=== PATIENT | female | born 1965 ===

== ENCOUNTER 2022-10-02 10:39 | Inpatient (IN) | payer MEDICAID, OTHER ==
[2022-10-02] MEDS ORDERED: MAG HYDROX/AL HYDROX/SIMETH 30 ML CUP PO PRN (11:01)
[2022-10-02] MEDS ORDERED: ACETAMINOPHEN TAB 325 MG TAB PO PRN (11:01)
[2022-10-02] MEDS ORDERED: MAGNESIUM HYDROXIDE 2,400 MG/10 ML CUP PO PRN (11:01)
[2022-10-02] MEDS ORDERED: HALOPERIDOL LACTATE 5 MG/ML 1 ML VIAL IM PRN (11:12)
[2022-10-02] MEDS ORDERED: LORazepam 2 MG/ML INJ IM PRN (11:12)
[2022-10-02] MEDS: haloperidoL 5 MG TAB PO PRN (14:19)
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
[2022-10-02] MEDS: OLANZapine 5 MG TAB PO SCH (20:41)
--- NOTE | 2022-10-02 23:48 | P.CONS ---
History of Present Illness - Reason for Consult Consult date: 10/02/22 - History of Present Illness Patient is a 57-year-old female with a PMH of depression and anxiety who was transferred from [facility] where she had presented presented to the emergency room with complaints of depression and suicidal ideation. The patient was admitted to the mental health unit where she was seen and evaluated. The patient states that she has recently been worried about her children and has just been feeling down about her life. Patient states that she received a divorce from her ex- 4 years ago after a long marriage. 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 She denies any physical complaints at the time of interview however. The patient denies tobacco, alcohol, or substance use. She denied experiencing chest discomfort, shortness of breath, fever, chills, cough, nausea, vomiting, abdominal pain, diarrhea. Review of systems: Pertinent positives and negatives as discussed in HPI, a complete review of systems was performed and all other systems are negative. Physical examination: General: non toxic, no distress, appears at stated age, obese Derm: no unusual rashes/lesions, no unusual ecchymoses, warm, dry Head: atraumatic, normocephalic, symmetric Eyes: EOMI, no lid lag, anicteric sclera ENT: Nose and ears atraumatic, no thrush, no pharyngeal erythema Neck: trachea midline, supple Mouth: no lip lesion, mucus membranes moist Cardiovascular: S1S2 reg, no murmur, no edema Lungs: CTA bilateral, no rhonchi, no rales , no accessory muscle use Abdominal: soft, nontender to palpation, no guarding Ext: no gross muscle atrophy, no contractures, Neuro: No gross focal neuro deficits noted Psych: Alert, oriented, appropriate affect Assessment: Elevated blood pressure Depression and suicidal ideation Imaging: None performed Plan: Monitor blood pressure for now and consider antihypertensives if persistently elevated Defer management of depression and suicidal ideation a primary psychiatry service Thank you for allowing us to participate in the care of this patient. We will follow peripherally. Do not hesitate to contact us with questions. Someone can be reached from the [facility] hospitalist group at all hours of the day at [phone]. Past Medical History Smoking Status: Never smoker - Past Family History Mother Family Medical History: Cancer Medications and Allergies Home Medications Medication Instructions Recorded Confirmed Type ALPRAZolam [Xanax] 0.5 mg PO DAILY PRN 10/02/22 10/02/22 History Dextroamphetamine/Amphetamine 20 mg PO BID 10/02/22 10/02/22 History [Adderall] FLUoxetine HCL 40 mg PO DAILY 10/02/22 10/02/22 History Allergies Allergy/AdvReac Type Severity Reaction Status Date / Time aspirin Allergy Unknown Verified 10/02/22 16:26 Physical Exam Vitals: Vital Signs Temp Pulse Resp BP Pulse Ox 10/02/22 14:26 98.4 F 88 16 143/84 99 Intake and Output 10/02/22 10/02/22 10/03/22 14:59 22:59 06:59 Other: Weight 79 kg
[2022-10-03] MEDS: MULTIVITAMINS, THERA 1 EACH TAB PO SCH (08:40)
[2022-10-03] MEDS: THIAMINE 100 MG TAB PO SCH (08:41)
[2022-10-03] MEDS ORDERED: FLUoxetine HCL 20 MG CAP PO SCH (09:00)
[2022-10-03] MEDS: FLUoxetine HCL 20 MG CAP PO SCH (16:21)
[2022-10-03] MEDS: OLANZapine 5 MG TAB PO SCH (20:32)
[2022-10-03] MEDS: LORazepam 1 MG TAB PO PRN (20:32)
[2022-10-04 06:44] VITALS: RESP 16
[2022-10-04] MEDS: MULTIVITAMINS, THERA 1 EACH TAB PO SCH (08:38)
[2022-10-04] MEDS: FLUoxetine HCL 20 MG CAP PO SCH (08:38)
[2022-10-04] MEDS: THIAMINE 100 MG TAB PO SCH (08:38)
[2022-10-04] MEDS: LORazepam 1 MG TAB PO PRN ×2 (10:58→23:20)
[2022-10-04] MEDS: OLANZapine 5 MG TAB PO SCH (20:28)
[2022-10-04] MEDS ORDERED: traZODone HCL 50 MG TAB PO SCH (21:00)
--- NOTE | 2022-10-04 21:01 | P.PN ---
Progress Note - Text Progress Note Date: 10/03/22 Interval History: Patient was seen resting in her bed and was directable and agreeable to speak with commercial insurance underwriter in the office. She reports her mood is "normal". she reports she feels good, "better than I have in a while". She reports she felt like she wanted to prior to coming into the hospital, nothing was making me happy, was just sad all the time. She was sober for 3 years, and relapsed on Thursday prior to admission. She reports chronic anxiety, denies panic attacks. At this time patient denies any suicidal or homicidal ideation, intent or plan. Patient denies any auditory, visual hallucinations, and denies any paranoia or delusions. Patient denies any side effects from the medications and has been compliant with meds. Mental Status Exam: General Appearance: Patient appears to be stated age is alert, directable, and cooperative. Behavior: Patient is calmly seated without any agitated behavior. Speech: Patient's speech is fluent and non-pressured. Mood/Affect: Mood is improving mildly, affect is congruent and constricted. Suicidality/Homicidality: Patient denies having any suicidal or homicidal ideation intent or plan. Perceptions: Patient denies any visual hallucinations and denies any auditory hallucinations. Though content/process: There is no evidence of any delusional thought content and thought process is linear and goal-directed. Memory and concentration: AOX3, grossly intact for the purposes of this session Judgment and insight: Improving mildly Assessment Major depressive disorder r/o dysthymia Alcohol use disorder, unspecified Plan: -Patient continues to meet criteria for inpatient psychiatric admission for symptom stabilization and safety. -Medications: Start Prozac at 20 mg daily for depression/anxiety Continue Zyprexa 5 mg daily. -When necessary Ativan and Haldol for agitation/aggression. -NRT - nicotine patch -SW on board for discharge planning. Encouraged the patient to participate in milieu.
--- NOTE | 2022-10-04 21:09 | P.PN ---
Progress Note - Text Progress Note Date: 10/04/22 Interval history: Patient was seen walking the hallways and was agreeable to speak with this curriculum writer. She reports she feels "much better" today, reports good mood and appetite. She has been attending groups. She reports fair sleep and asks if she can have a sleep aid such as Trazodone. At this time patient denies any suicidal or homicidal ideation, intent or plan. Patient denies any auditory, visual hallucinations, and denies any paranoia or delusions. Patient denies any side effects from the medications and has been compliant with meds. Mental Status Exam: General Appearance: Patient appears to be stated age is alert, directable, and cooperative. Behavior: Patient is calmly standing without any agitated behavior. Speech: Patient's speech is fluent and non-pressured. Mood/Affect: Mood is"much better", affect is congruent. Suicidality/Homicidality: Patient denies having any suicidal or homicidal ideation intent or plan. Perceptions: Patient denies any visual hallucinations and denies any auditory hallucinations. Though content/process: There is no evidence of any delusional thought content and thought process is linear and goal-directed. Memory and concentration: AOX3, grossly intact for the purposes of this session Judgment and insight: Improving mildly Assessment Major depressive disorder r/o dysthymia Alcohol use disorder, unspecified Plan: -Patient continues to meet criteria for inpatient psychiatric admission for symptom stabilization and safety. -Medications: Start Trazodone 50 mg QHS for sleep. Continue Prozac 20 mg daily for depression/anxiety Continue Zyprexa 5 mg daily. -When necessary Ativan and Haldol for agitation/aggression. -SW on board for discharge planning. Encouraged the patient to participate in milieu.
[2022-10-05] MEDS: THIAMINE 100 MG TAB PO SCH (08:00)
[2022-10-05] MEDS: MULTIVITAMINS, THERA 1 EACH TAB PO SCH (08:00)
[2022-10-05] MEDS: FLUoxetine HCL 20 MG CAP PO SCH (08:00)
[2022-10-05] MEDS ORDERED: diphenhydrAMINE 50 MG CAP PO PRN (16:59)
--- NOTE | 2022-10-05 17:34 | P.PN ---
Progress Note - Text Progress Note Date: 10/05/22 Interval history: Patient was seen walking the hallways and was agreeable to speak with this music writer. She reports she didn't like the Trazodone last night, it didn't help her sleep last night and she feels very tired today. She reports she slept better after taking Ativan last night but we discussed this is can be habit forming and she would not be discharged home with Ativan. She reports her mood is still "blah". We discussed increasing her Prozac from 20 mg daily to 30 mg daily and she expresses agreement. She reports multiple stressors she has to deal with when she gets home and reports feeling somewhat overwhelmed by this. At this time, patient denies any suicidal or homicidal ideation, intent or plan. Patient denies any auditory, visual hallucinations, and denies any paranoia or delusions. Patient has been compliant with meds. Mental Status Exam: General Appearance: Patient appears to be stated age is alert, directable, and cooperative. Behavior: Patient is calmly standing without any agitated behavior. Speech: Patient's speech is fluent and non-pressured. Mood/Affect: Mood is "blah" somewhat overwhelmed, affect is congruent. Suicidality/Homicidality: Patient denies having any suicidal or homicidal ideation intent or plan. Perceptions: Patient denies any visual hallucinations and denies any auditory hallucinations. Though content/process: There is no evidence of any delusional thought content and thought process is linear and goal-directed. Memory and concentration: AOX3, grossly intact for the purposes of this session Judgment and insight: Improving mildly Assessment Major depressive disorder r/o Dysthymia Alcohol use disorder, unspecified Plan: -Patient continues to meet criteria for inpatient psychiatric admission for symptom stabilization and safety. -Medications: Discontinue Trazodone 50 mg QHS for sleep. Start Benadryl 50 mg QHS PRN for sleep. Increase Prozac from 20 mg daily to 30 mg daily starting tomorrow morning for depression/anxiety Continue Zyprexa 5 mg daily. -When necessary Ativan and Haldol for agitation/aggression. -SW on board for discharge planning. Encouraged the patient to participate in milieu. -Plan to discharge Thursday if continues to tolerate medication adjustments well.
[2022-10-05] MEDS: OLANZapine 5 MG TAB PO SCH (19:48)
[2022-10-05] MEDS: haloperidoL 5 MG TAB PO PRN (21:26)
[2022-10-06 06:38] VITALS: BP 122/66; PULSE 65; TEMP 97.6
[2022-10-06] MEDS: MULTIVITAMINS, THERA 1 EACH TAB PO SCH (08:20)
[2022-10-06] MEDS: THIAMINE 100 MG TAB PO SCH (08:20)
[2022-10-06] MEDS ORDERED: FLUoxetine HCL 10 MG CAP PO SCH (09:00)
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
== END 2022-10-06 19:55 | disposition home or self-care (01) | DRG 751 ==
LOC: 3MHU 13:21
PROVIDERS: ADMIT Psychiatry & Neurology Psychiatry; ATTEND Psychiatry & Neurology Psychiatry
DX: F33.9 Major depressive disorder, recurrent, unspecified (principal); R45.851 Suicidal ideations; F19.11 Other psychoactive substance abuse, in remission; F10.90 Alcohol use, unspecified, uncomplicated; F41.9 Anxiety disorder, unspecified; Z28.310 Unvaccinated for COVID-19; R03.0 Elevated blood-pressure reading, without diagnosis of hypertension; Z79.899 Other long term (current) drug therapy; Z62.810 Personal history of physical and sexual abuse in childhood; Z88.6 Allergy status to analgesic agent